=== PATIENT | female | born 1985 | race Two or more races ===

== ENCOUNTER 2022-07-11 17:24 | Emergency (ER) | payer OTHER ==
[~2022-07-11] VITALS: Ht 165.1 cm; Wt 80.5 kg
[2022-07-11] MEDS ORDERED: MONT-35 PO (17:29)
[2022-07-11] MEDS ORDERED: ALBU8HFA IH (17:29)
[2022-07-11] MEDS ORDERED: KETO15CR2 TP (17:35)
[2022-07-11] MEDS ORDERED: CICL6.6S22 TP (17:35)
[2022-07-11] MEDS ORDERED: TIZA2CAP7 PO (17:35)
[2022-07-11] MEDS ORDERED: FLUT1BLS23 IH (17:35)
[2022-07-11] MEDS ORDERED: LORA10TA7 PO (17:35)
[2022-07-11 18:01] VITALS: BP 115/71
[2022-07-11] MEDS ORDERED: CHLO473M6 PO (18:22)
[2022-07-11] MEDS ORDERED: ACET-2080 PO (18:22)
== END 2022-07-11 19:17 | disposition home or self-care (01) ==
LOC: EMS 17:29
DX: S02.5XXA Fracture of tooth (traumatic), initial encounter for closed fracture (principal); K14.0 Glossitis; J45.909 Unspecified asthma, uncomplicated; Z98.890 Other specified postprocedural states; X58.XXXA Exposure to other specified factors, initial encounter; Y93.89 Activity, other specified; Y92.89 Other specified places as the place of occurrence of the external cause; Y99.8 Other external cause status
CPT/HCPCS: 99282; Z7502